=== PATIENT | female | born 1985 | race Caucasian/White ===

== ENCOUNTER 2017-02-12 20:21 | Emergency (ER) | payer SELFPAY ==
[~2017-02-12] VITALS: Ht 162.6 cm; Wt 90.0 kg
[~2017-02-12 20:21] MED LIST: CEPH500C3 PO; CLIN150 PO; TRAM50 PO
[2017-02-12 20:38] VITALS: BP 132/79; PULSE 77; RESP 20; TEMP 97.9; O2SAT 95
--- NOTE | 2017-02-12 21:08 | PD ---
HPI Chief Complaint: Cold / Flu Symptoms Time Seen by Provider: 21:08 Travel History International Travel<30 days: No Contact w/Intl Traveler<30days: No Traveled to known affect area: No History of Present Illness HPI 31-year-old female presents to the emergency department for evaluation of cold symptoms that have been ongoing since Thursday, 6 days ago. She states that she started running a fever on Thursday. She states she ran a fever last night of at work. She states she also has a productive cough. Patient states that today, she also felt dizzy. She denies any syncopal episodes. She reports sore throat. She states that she has pressure to her sinuses. Patient denies any vomiting. She denies any abdominal pain. She does not believe she is . She has no chronic medical problems and takes no prescribed medications. Patient states she took Robitussin today which did help her symptoms. She states her congestion has improved today. However, due to the dizziness, she wanted to come to the hospital to be checked out. PFSH Past Medical History Cardiovascular Problems: No Endocrine: No Gastrointestinal Disorders: No Genitourinary: No Musculoskeletal: No Neurologic: No Psychiatric: No Reproductive: Yes (POSS MISCARRIAGE 2005) Respiratory: Yes Sleep Apnea: Yes (DOES NOT USE CPAP) Miscarriage: 1 Past Surgical History Cholecystectomy: Yes Tonsillectomy: Yes (AND ADNOIDS) Other Surgery: Yes (TONSILECTOMY, APPENDECTOMY) Social History Alcohol Use: Yes (rarely) Tobacco Use: No Substance Use: No Allergies-Medications (Allergen,Severity, Reaction): Coded Allergies: Vicodin (Verified Allergy, Severe, VOMITING, 02/12/17) Uncoded Allergies: ANESTHESIA (Allergy, Severe, 01/11/15) Reported Meds & Prescriptions Reported Meds & Active Scripts Active Reported Robitussin 12 Hour Cough Liq (Dextromethorphan Polistirex Liq) 30 Mg/5 Ml [place] 10 Ml PO Q12H PRN Ibuprofen 400 Mg Tab 400 Mg PO Q6H PRN Review of Systems Except as stated in HPI: all other systems reviewed are Neg Physical Exam Narrative GENERAL: Well-developed well-nourished female patient, ambulatory. Afebrile. SKIN: Warm and dry. HEAD: Normocephalic. Atraumatic. Bilateral sinus and maxillary tenderness to palpation. EYES: No scleral icterus. No injection or drainage. NECK: Supple, trachea midline. No JVD or lymphadenopathy. CARDIOVASCULAR: Regular rate and rhythm without murmurs, gallops, or rubs. RESPIRATORY: Breath sounds equal bilaterally. No accessory muscle use. Lungs sounds are clear to auscultation. GASTROINTESTINAL: Abdomen soft, non-tender, nondistended. MUSCULOSKELETAL: No cyanosis, or edema. BACK: Nontender without obvious deformity. No CVA tenderness. Data Data Last Documented VS Vital Signs Date Time Temp Pulse Resp B/P Pulse Ox O2 Delivery O2 Flow Rate FiO2 02/12/17 21:30 104 20 97 Room Air 02/12/17 20:38 97.9 132/79 Orders Iv Access Insert/Monitor (02/12/17 21:07) Complete Blood Count With Diff (02/12/17 21:07) Basic Metabolic Panel (Bmp) (02/12/17 21:07) Group A Rapid Strep Screen (02/12/17 21:07) Chest, Pa & Lat (02/12/17 ) Sodium Chlor 0.9% 1000 Ml Inj (Ns 1000 M (02/12/17 21:15) Urinalysis - C+S If Indicated (02/12/17 21:08) Ed Urine Pregnancytest Poc (02/12/17 21:08) Ondansetron Inj (Zofran Inj) (02/12/17 21:30) Urine Culture (02/12/17 21:18) Strep Culture (Group A) (02/12/17 21:30) Labs Laboratory Tests Test 02/12/17 21:18 White Blood Count 5.0 TH/MM3 Red Blood Count 4.91 MIL/MM3 Hemoglobin 12.8 GM/DL Hematocrit 37.8 % Mean Corpuscular Volume 77.0 FL Mean Corpuscular Hemoglobin 26.1 PG Mean Corpuscular Hemoglobin 33.9 % Concent Red Cell Distribution Width 14.6 % Platelet Count 235 TH/MM3 Mean Platelet Volume 7.4 FL Neutrophils (%) (Auto) 71.5 % Lymphocytes (%) (Auto) 15.9 % Monocytes (%) (Auto) 9.8 % Eosinophils (%) (Auto) 2.4 % Basophils (%) (Auto) 0.4 % Neutrophils # (Auto) 3.6 TH/MM3 Lymphocytes # (Auto) 0.8 TH/MM3 Monocytes # (Auto) 0.5 TH/MM3 Eosinophils # (Auto) 0.1 TH/MM3 Basophils # (Auto) 0.0 TH/MM3 CBC Comment DIFF FINAL Differential Comment Urine Color YELLOW Urine Turbidity HAZY Urine pH 5.0 Urine Specific Jackson 1.029 Urine Protein TRACE mg/dL Urine Glucose (UA) NEG mg/dL Urine Ketones TRACE mg/dL Urine Occult Blood NEG Urine Nitrite NEG Urine Bilirubin NEG Urine Urobilinogen LESS THAN 2.0 MG/DL Urine Leukocyte Esterase MOD Urine RBC 2 /hpf Urine WBC 9 /hpf Urine Squamous Epithelial 2 /hpf Cells Urine Mucus FEW /lpf Microscopic Urinalysis Comment CULTURE INDICATED Sodium Level 137 MEQ/L Potassium Level 3.7 MEQ/L Chloride Level 103 MEQ/L Carbon Dioxide Level 28.0 MEQ/L Anion Gap 6 MEQ/L Blood Urea Nitrogen 9 MG/DL Creatinine 0.63 MG/DL Estimat Glomerular Filtration 111 ML/MIN Rate Random Glucose 180 MG/DL Calcium Level 8.6 MG/DL [facility] Medical Decision Making Medical Screen Exam Complete: Yes Emergency Medical Condition: Yes Medical Record Reviewed: Yes Interpretation(s) Last Impressions Chest X-Ray 02/12/17 0000 Signed Impressions: Service Date/Time: January 21:40 - CONCLUSION: 1. Patchy bronchopneumonia in the right lung. Gagan Garcia MD Differential Diagnosis URI versus strep pharyngitis versus sinusitis versus electrolyte abnormality versus dehydration Narrative Course 31-year-old female presents to the emergency department for evaluation of cold symptoms for 6 days. She states that she also felt dizzy today. IV access established. CBC, BMP, UA, urine test are ordered and pending. Chest x-ray and strep swab are ordered and pending. CBC shows no acute abnormalities. BMP shows no acute abnormalities. UA shows moderate leukocytes esterase, 9 WBC. UPT is negative. Strep is negative. Chest x-ray shows patchy bronchopneumonia in the right lung. Patient denies any urinary symptoms. I discussed the case with my attending physician, Dr. Brush , who agrees on plan and disposition. Patient will be discharged with a prescription for prednisone, Zofran, and Z-Pac. The patient is agreeable to this plan. Diagnosis Primary Impression: Bronchopneumonia Referrals: Primary Care Physician call for appointment Patient Instructions: Community Acquired Pneumonia (ED), General Instructions Departure Forms: Tests/Procedures, Work Release Enter return to work date: Feb 15, 2017 Additional Instructions: Rest. Drink plenty of fluids. Take Zofran as directed as needed for nausea/vomiting. Take prednisone as directed. Take azithromycin as directed until gone. Follow-up with your primary care physician. Return to the emergency department for any acute worsening of symptoms. Med/Other Pt SpecificInfo: Prescription(s) given Scripts Azithromycin (Zithromax Z-Jared)250 Mg Vthb517 Mg PO DIRECTED #1 DSPK Ref 0 500 MG (2 tabs) day 1, then 1 tab days 2-5. Prov:Debbie Jewell 02/12/17 Ondansetron Odt (Zofran Odt)4 Mg Tab4 Mg SL Q6HR PRN (Nausea/Vomiting) #16 TAB Ref 0 Prov:Debbie Jewell 02/12/17 Prednisone 20 Mg Tab40 Mg PO DAILY 5 Days Ref 0 Prov:Debbie Jewell 02/12/17 Disposition: 01 DISCHARGE HOME Condition: Stable Debbie Jewell Feb 12, 2017 21:08
[2017-02-12] MEDS ORDERED: SODIUM CHLOR 0.9% 1000 ML INJ 1,000 ML IV ONE (21:15)
[2017-02-12] MEDS ORDERED: ONDANSETRON HCL 4 MG/2 ML VIAL IV PUSH ONE (21:30)
[2017-02-12 21:36] LABS: AUTOMATED NEUTROPHIL # 3.6 TH/MM3 (1.8-7.7); BASOPHIL % 0.4 % (0.0-2.0); EOSINOPHIL # 0.1 TH/MM3 (0-0.4); EOSINOPHIL % 2.4 % (0.0-4.0); HEMATOCRIT 37.8 % (35.0-46.0); HEMO FLAGS DIFF FINAL; LYMPH % 15.9 % (9.0-44.0); LYMPHOCYTE # 0.8 TH/MM3 (1.0-4.8); MEAN CORPUSCULAR HEMOGLOBIN 26.1 PG (27.0-34.0); MEAN CORPUSCULAR HGB CONC 33.9 % (32.0-36.0); MONO % 9.8 % (0.0-8.0); NEUT % 71.5 % (16.0-70.0); PLATELET COUNT 235 TH/MM3 (150-450); RED BLOOD COUNT 4.91 MIL/MM3 (4.00-5.30); RED CELL DISTRIBUTION WIDTH 14.6 % (11.6-17.2)
[2017-02-12 21:40] LABS: BLOOD, URINE NEG (NEG); COMMENT (UR) CULTURE INDICATED; CULTURE IF INDICATED CULTURE INDICATED; GLUCOSE,URINE NEG (NEG); KETONE, URINE TRACE mg/dL (NEG); MUCUS URINE FEW /lpf (OCC); NITRITE,URINE NEG (NEG); SQUAMOUS EPITHELIAL CELL URINE 2 /hpf (0-5); URINE COLOR YELLOW (YELLW/STRAW)
[2017-02-12] MEDS ORDERED: DEXT1SUS PO (21:41)
[2017-02-12] MEDS ORDERED: IBUP400T20 PO (21:41)
--- NOTE | 2017-02-12 22:01 | RADRPT ---
EXAM DATE/TIME: 02/12/2017 21:40 [place] COMPARISON: No previous studies available for comparison. INDICATIONS : Fever, flu-like symptoms. MEDICAL HISTORY : None. SURGICAL HISTORY : None. ENCOUNTER: Initial ACUITY: 1 week PAIN SCORE: 3/10 LOCATION: chest FINDINGS: PA and lateral views of the chest demonstrates patchy airspace disease in the right lung characterist ic of a bronchopneumonia. Left lung clear. No significant effusion. Heart size upper limits normal. CONCLUSION: 1. Patchy bronchopneumonia in the right lung. Gagan Garcia MD on February 12, 2017 at 21:59 Board Certified Radiologist. This report was verified electronically.
[2017-02-12 22:05] LABS: POTASSIUM 3.7 MEQ/L (3.5-5.1)
[2017-02-12] MEDS ORDERED: PRED20 PO (22:25)
[2017-02-12] MEDS ORDERED: ZITHTAB PO (22:25)
[2017-02-12] MEDS ORDERED: ZOFR4TAB3 SL (22:25)
[2017-02-12] MEDS ORDERED: ACETAMINOPHEN 325 MG TAB PO ONE (22:30)
== END 2017-02-12 23:18 | disposition home or self-care (01) ==
LOC: NEDAMB 20:21 → NEPA 23:18
DX: J18.0 Bronchopneumonia, unspecified organism (principal); R42 Dizziness and giddiness
CPT/HCPCS: 71020; 80048; 81001; 84703; 85025; 87081; 87086; 87880; 96361; 96374; 99284; J2405; J7030